=== PATIENT | male | born 1965 | race Caucasian/White ===

== ENCOUNTER 2025-04-26 18:53 | Inpatient (IN) | payer MEDICAID, OTHER ==
[~2025-04-26] VITALS: Ht 177.8 cm; Wt 74.8 kg
[2025-04-26 19:43] LABS: BASOPHILS % 0.6 % (0.0-2.0); EOSINOPHILS % 3.7 % (0.0-5.0); HEMATOCRIT. 40.7 % (42.0-52.0); HEMOGLOBIN. 13.8 g/dL (14.0-18.0); LYMPHOCYTES % 10.3 % (20.0-50.0); MEAN CORPUSCULAR HEMOGLOBIN 32.2 pg (28.0-32.0); MEAN CORPUSCULAR VOLUME 94.6 fL (80.0-94.0); MEAN PLATELET VOLUME 8.2 fl (7.4-10.4); MONOCYTES % 3.1 % (2.0-8.0); NEUTROPHILS % 82.3 % (40.0-76.0); PLATELET 217 x1000/uL (130-400); RED CELL DISTRIBUTION WIDTH 13.7 % (11.6-14.6); WHITE BLOOD COUNT 14.7 x1000/uL (4.5-11.0)
[2025-04-26 19:51] LABS: CHLORIDE 108 mEq/L (98-107); POTASSIUM 4.1 mEq/L (3.5-5.1); SODIUM 138 mEq/L (136-145)
[2025-04-26 19:52] LABS: CARBON DIOXIDE 25 mEq/L (21-32)
[2025-04-26 19:53] LABS: CALCIUM 8.8 mg/dL (8.7-10.4)
[2025-04-26 19:57] LABS: GLUCOSE 233 mg/dL (70-105); UREA NITROGEN BLOOD 16 mg/dL (9-23)
[2025-04-26 20:26] LABS: TROPONIN I HIGH SENSITIVITY < 4 ng/L (3.0-53)
[2025-04-26] MEDS: ONDANSETRON HCL 4MG/2ML INJ IV STA (21:03)
[2025-04-26] MEDS: MORPHINE SULFATE 4 MG/ML INJ (FOR IV/IM USE) IV STA (21:03)
[2025-04-26 22:03] LABS: PARTIAL THROMBOPLASTIN TIME 27.1 sec (23.4-31.0); PROTHROMBIN TIME 11.2 sec (9.6-11.0)
[2025-04-26 22:07] LABS: ALANINE AMINOTRANSFERASE 16 IU/L (10-49); ASPARTATE AMINOTRANSFERASE 17 IU/L (<34); BILIRUBIN DIRECT 0.1 mg/dL (<=3.0); BILIRUBIN TOTAL 0.5 mg/dL (0.1-1.0); PROTEIN TOTAL 7.3 g/dL (6.0-8.3)
[2025-04-26] MEDS: SODIUM CHLORIDE 0.9% 1,000 ML IV ONE (22:17)
[2025-04-26] MEDS: CEFTRIAXONE 1GM/50ML 50 ML IV ONE (23:13)
[2025-04-26] MEDS: DOXYCYCLINE 100MG/100ML 100 ML IV SCH (23:13)
[2025-04-27] MEDS: IOHEXOL-350 100 ML BOTTLE ONE
[2025-04-27] MEDS ORDERED: MORPHINE SULFATE 4 MG/ML INJ (FOR IV/IM USE) IV ONE (00:15)
[2025-04-27] MEDS: MORPHINE SULFATE 4 MG/ML INJ (FOR IV/IM USE) IV NR (02:35)
[2025-04-27] MEDS ORDERED: PRAZ1CAP5 PO (03:39)
[2025-04-27] MEDS ORDERED: RISP0.5T79 MT (03:39)
[2025-04-27 03:57] VITALS: BP 137/75; PULSE 87; RESP 18; TEMP 36.5
[2025-04-27 04:00] VITALS: BP 131/66; PULSE 69; RESP 19; TEMP 36.8; O2SAT 98
[2025-04-27] MEDS ORDERED: NALOXONE HCL 0.4MG/ML VIAL IV PRN (06:00)
[2025-04-27] MEDS ORDERED: DEXTROSE 50% WATER 50ML SYRINGE IV PRN (06:00)
[2025-04-27] MEDS: BLOOD SUGAR DIAGNOSTIC STRIP TEST SCH (06:42)
[2025-04-27 08:00] VITALS: BP 128/72; PULSE 65; RESP 18; TEMP 36.9; O2SAT 98
[2025-04-27] MEDS: INSULIN LISPRO 100 UNITS/ML SUBCUT SCH (08:39)
[2025-04-27] MEDS: INSULIN GLARGINE 100 UNITS/ML SUBCUT SCH (08:39)
[2025-04-27] MEDS: ASPIRIN 81MG TABLET PO SCH (08:43)
[2025-04-27] MEDS: METOPROLOL TARTRATE 50MG TABLET PO SCH (08:43)
[2025-04-27] MEDS: HYDROCODONE/ACETAMINOPHEN 5/325MG TABLET PO PRN (08:56)
[2025-04-27 12:00] VITALS: BP 134/78; PULSE 72; RESP 18; TEMP 36.5
[2025-04-27] MEDS ORDERED: ASCO500T20 PO (13:58)
[2025-04-27] MEDS ORDERED: MULT-1279 PO (13:58)
[2025-04-27] MEDS ORDERED: CYAN-50 PO (13:58)
[2025-04-27] MEDS ORDERED: FOLI0.4T6 PO (13:58)
[2025-04-27 16:16] LABS: HEMOGLOBIN. 14.6 g/dL (14.0-18.0); MEAN CORPUSCULAR HEMOGLOBIN 31.8 pg (28.0-32.0); MEAN CORPUSCULAR HGB CONC 33.9 g/dL (31.0-37.0); MEAN CORPUSCULAR VOLUME 93.8 fL (80.0-94.0); MEAN PLATELET VOLUME 8.1 fl (7.4-10.4); PLATELET 204 x1000/uL (130-400); RED BLOOD CELL COUNT 4.58 mill/uL (4.7-6.1); WHITE BLOOD COUNT 16.6 x1000/uL (4.5-11.0)
[2025-04-27 16:17] LABS: DIFFERENTIAL COMMENT 1
[2025-04-27 16:26] LABS: CHLORIDE 100 mEq/L (98-107); POTASSIUM 3.9 mEq/L (3.5-5.1); SODIUM 133 mEq/L (136-145)
[2025-04-27 16:27] LABS: CALCIUM 8.7 mg/dL (8.7-10.4); CARBON DIOXIDE 27 mEq/L (21-32)
[2025-04-27 16:31] LABS: PLATELET ESTIMATE NORMAL
[2025-04-27 16:32] LABS: CREATININE 0.8 mg/dL (0.6-1.3); GLUCOSE 189 mg/dL (70-105); TRIGLYCERIDE 97 mg/dL (0-150); UREA NITROGEN BLOOD 10 mg/dL (9-23)
[2025-04-27 16:33] LABS: LDL CHOLESTEROL 134 mg/dL (5-100)
[2025-04-27 16:34] LABS: CHOLESTEROL 189 mg/dL (<200); HDL CHOLESTEROL 51 mg/dL (>55)
[2025-04-27 16:37] LABS: THYROID STIMULATING HORMONE 0.37 uIU/mL (0.55-4.78)
[2025-04-27 18:20] VITALS: BP 140/76; PULSE 82; RESP 18; TEMP 36.9; O2SAT 98
[2025-04-27 20:00] VITALS: BP 119/73; PULSE 79; RESP 18; TEMP 36.8; O2SAT 98
[2025-04-27] MEDS: ATORVASTATIN CALCIUM 40MG TABLET PO SCH (20:57)
[2025-04-27] MEDS: PRAZOSIN HCL 1MG CAPSULE PO SCH (20:59)
[2025-04-28] VITALS: BP 93/42; PULSE 63; RESP 18; TEMP 37.1; O2SAT 93
[2025-04-28 04:00] VITALS: BP 102/62; PULSE 63; RESP 18; TEMP 36.6; O2SAT 93
[2025-04-28 06:43] LABS: HEMATOCRIT. 41.7 % (42.0-52.0); HEMOGLOBIN. 14.3 g/dL (14.0-18.0); MEAN CORPUSCULAR HEMOGLOBIN 32.1 pg (28.0-32.0); MEAN CORPUSCULAR HGB CONC 34.2 g/dL (31.0-37.0); MEAN CORPUSCULAR VOLUME 93.7 fL (80.0-94.0); MEAN PLATELET VOLUME 8.7 fl (7.4-10.4); PLATELET 171 x1000/uL (130-400); RED BLOOD CELL COUNT 4.45 mill/uL (4.7-6.1); RED CELL DISTRIBUTION WIDTH 13.9 % (11.6-14.6); WHITE BLOOD COUNT 21.8 x1000/uL (4.5-11.0)
[2025-04-28 06:44] LABS: CARBON DIOXIDE 26 mEq/L (21-32); CHLORIDE 97 mEq/L (98-107); POTASSIUM 3.7 mEq/L (3.5-5.1); SODIUM 131 mEq/L (136-145)
[2025-04-28 06:45] LABS: CALCIUM 8.7 mg/dL (8.7-10.4)
[2025-04-28 06:50] LABS: CREATININE 0.8 mg/dL (0.6-1.3); GLUCOSE 166 mg/dL (70-105)
[2025-04-28 06:51] LABS: UREA NITROGEN BLOOD 14 mg/dL (9-23)
[2025-04-28 06:53] LABS: DIFFERENTIAL COMMENT 1
[2025-04-28 08:00] VITALS: BP 108/70; PULSE 76; RESP 20; TEMP 36.9; O2SAT 93
[2025-04-28] MEDS ORDERED: FOLIC ACID 1MG TABLET PO SCH (09:00)
[2025-04-28] MEDS ORDERED: MULTIVITAMINS,THER W-MINERALS TABLET PO SCH (09:00)
[2025-04-28] MEDS: MULTIVITAMINS,THER W-MINERALS TABLET PO SCH (09:00)
[2025-04-28] MEDS: PANTOPRAZOLE SODIUM 40 MG/VIAL IV SCH (09:21)
[2025-04-28] MEDS: RISPERIDONE 0.5MG TABLET PO SCH (09:23)
[2025-04-28] MEDS: CYANOCOBALAMIN 1000MCG TABLET PO SCH (09:24)
[2025-04-28] MEDS: FOLIC ACID 1MG TABLET PO SCH (09:24)
[2025-04-28] MEDS: THIAMINE HCL 100MG TABLET PO SCH (09:24)
[2025-04-28] MEDS: ASCORBIC ACID 500 MG TABLET PO SCH (09:25)
[2025-04-28 12:00] VITALS: BP 112/64; PULSE 67; RESP 20; TEMP 36.4; O2SAT 99
[2025-04-28 13:14] LABS: PLATELET ESTIMATE NORMAL
[2025-04-28] MEDS: PIPERACILLIN/TAZO 3.375G/50ML IV SCH (13:48)
[2025-04-28] MEDS: VANCOMYCIN 1.5GM/250ML IV NR (14:00)
[2025-04-28] MEDS ORDERED: PIPERACILLIN/TAZO 3.375G/100ML 100 ML IV SCH (14:00)
[2025-04-28 16:00] VITALS: BP 118/65; PULSE 68; RESP 20; TEMP 36.6; O2SAT 98
[2025-04-28 20:00] VITALS: BP 116/55; PULSE 67; RESP 18; TEMP 36.7; O2SAT 100
[2025-04-29] VITALS: BP 95/59; PULSE 68; RESP 18; TEMP 36.4; O2SAT 98
[2025-04-29] MEDS: VANCOMYCIN 1.25GM/250ML IV SCH (01:11)
[2025-04-29 04:00] VITALS: BP 115/61; PULSE 70; RESP 16; TEMP 36.7; O2SAT 100
[2025-04-29 06:12] LABS: CALCIUM 8.7 mg/dL (8.7-10.4); CARBON DIOXIDE 26 mEq/L (21-32); CHLORIDE 97 mEq/L (98-107); POTASSIUM 3.9 mEq/L (3.5-5.1); SODIUM 132 mEq/L (136-145)
[2025-04-29 06:18] LABS: CREATININE 0.8 mg/dL (0.6-1.3); GLUCOSE 224 mg/dL (70-105); UREA NITROGEN BLOOD 15 mg/dL (9-23)
[2025-04-29 06:26] LABS: HEMATOCRIT. 39.9 % (42.0-52.0); HEMOGLOBIN. 13.7 g/dL (14.0-18.0); MEAN CORPUSCULAR HEMOGLOBIN 31.9 pg (28.0-32.0); MEAN CORPUSCULAR HGB CONC 34.4 g/dL (31.0-37.0); MEAN CORPUSCULAR VOLUME 92.8 fL (80.0-94.0); MEAN PLATELET VOLUME 9.1 fl (7.4-10.4); PLATELET 164 x1000/uL (130-400); RED CELL DISTRIBUTION WIDTH 13.8 % (11.6-14.6)
[2025-04-29 07:00] LABS: DIFFERENTIAL COMMENT 1
[2025-04-29 08:00] VITALS: BP 111/64; PULSE 70; RESP 18; TEMP 36.8; O2SAT 98
[2025-04-29 08:34] LABS: *AMPHETAMINES SCREEN URINE NEGATIVE (NEGATIVE); *BARBITURATES SCREEN URINE NEGATIVE (NEGATIVE); *BENZODIAZEPINES SCREEN URINE NEGATIVE (NEGATIVE); *COCAINE SCREEN URINE PRESUMPTIVE POSITIVE (NEGATIVE); CANNABINOID URINE SCREEN NEGATIVE (NEGATIVE); ECSTASY MDMA SCREEN URINE NEGATIVE (NEGATIVE); METHADONE URINE SCREEN NEGATIVE (NEGATIVE); OPIATES URINE SCREEN PRESUMPTIVE POSITIVE (NEGATIVE); PHENCYCLIDINE URINE SCREEN NEGATIVE (NEGATIVE)
[2025-04-29] MEDS ORDERED: GUAIFENESIN/CODEINE 200-20MG/10ML UDC PO PRN (11:30)
[2025-04-29 12:00] VITALS: BP 109/65; PULSE 67; RESP 18; TEMP 36.8; O2SAT 96
[2025-04-29 16:00] VITALS: BP 105/68; PULSE 69; RESP 18; TEMP 36.7; O2SAT 97
[2025-04-29 17:16] LABS: PLATELET ESTIMATE NORMAL
[2025-04-29] MEDS: AZITHROMYCIN 500MG/250ML 250 ML IV SCH (18:47)
[2025-04-29 20:00] VITALS: BP 118/61; PULSE 78; RESP 19; TEMP 37.7; O2SAT 96
[2025-04-30] VITALS: BP 120/50; PULSE 91; RESP 18; TEMP 38.3; O2SAT 98
[2025-04-30 00:20] LABS: CARBON DIOXIDE 27 mEq/L (21-32); CHLORIDE 99 mEq/L (98-107); POTASSIUM 3.9 mEq/L (3.5-5.1); SODIUM 134 mEq/L (136-145)
[2025-04-30 00:21] LABS: CALCIUM 8.7 mg/dL (8.7-10.4)
[2025-04-30 00:25] LABS: CREATININE 0.8 mg/dL (0.6-1.3); GLUCOSE 150 mg/dL (70-105)
[2025-04-30 00:26] LABS: UREA NITROGEN BLOOD 11 mg/dL (9-23)
[2025-04-30 00:27] LABS: ALANINE AMINOTRANSFERASE 30 IU/L (10-49); ASPARTATE AMINOTRANSFERASE 34 IU/L (<34)
[2025-04-30 00:28] LABS: ALBUMIN 3.7 g/dL (3.2-4.8); BILIRUBIN TOTAL 0.7 mg/dL (0.1-1.0); PROTEIN TOTAL 6.6 g/dL (6.0-8.3)
[2025-04-30 04:00] VITALS: BP 141/69; PULSE 19; RESP 19; TEMP 38.3; O2SAT 100
[2025-04-30] MEDS: ACETAMINOPHEN 325MG TABLET PO PRN (05:55)
[2025-04-30 08:00] VITALS: BP 118/70; PULSE 75; RESP 17; TEMP 36.7; O2SAT 98
[2025-04-30] MEDS: FAMOTIDINE 20MG/2ML VIAL IV SCH (10:27)
[2025-04-30] MEDS: DEXT 5%/0.45% NACL KCL 20MEQ/L 1,000 ML IV SCH (10:36)
[2025-04-30 11:35] LABS: INR 1.3; PROTHROMBIN TIME 13.7 sec (9.6-11.0)
[2025-04-30 12:00] VITALS: BP 119/72; PULSE 76; RESP 16; TEMP 36.4; O2SAT 98
[2025-04-30] MEDS ORDERED: LIDOCAINE HCL 1% 20ML VIAL INFIL SCH (15:00)
[2025-04-30] MEDS: KCL 20MEQ/100ML PREMIX 100 ML IV NR (15:26)
[2025-04-30 16:00] VITALS: BP_SYST 118; BP_SYST 120; BP_DIAS 71; BP_DIAS 75; PULSE 75; RESP 17; RESP 18; TEMP 35.8; TEMP 36.4; O2SAT 98; O2SAT 99
[2025-04-30] MEDS: AZITHROMYCIN 500MG/250ML 250 ML IV SCH (18:51)
[2025-04-30 20:00] VITALS: BP 122/72; PULSE 68; RESP 21; TEMP 36.2; O2SAT 95
[2025-04-30] MEDS ORDERED: CHLORHEXIDINE GLUCONATE 4% EXTERNAL USE TOP SCH (23:15)
[2025-05-01] VITALS (40 sets, daily range): BP systolic 88–123; BP diastolic 46–75; PULSE 57–75; RESP 14–29; TEMP 36.3–36.6; O2SAT 95–100
[2025-05-01] MEDS: IPRATROPIUM/ALBUTEROL 0.5-3(2.5)MG/3ML NEB HHN SCH (00:23)
[2025-05-01] MEDS ORDERED: CHLORHEXIDINE GLUCONATE 4% EXTERNAL USE TOP SCH (05:00)
[2025-05-01] MEDS ORDERED: SKIN ADHESIVE 0.7 GM EA TOP ONE (07:06)
[2025-05-01] MEDS ORDERED: POLYMYXIN B SULFATE 500000 UNITS/VIAL ONE (07:06)
[2025-05-01] MEDS ORDERED: PHENYLEPHRINE 50MG/250ML PMX 250 ML IV ONE (07:06)
[2025-05-01] MEDS ORDERED: LIDOCAINE HCL/EPINEPHRINE 1%-EPI 1:100,000 20ML VIAL ONE (07:06)
[2025-05-01] MEDS ORDERED: BUPIVACAINE HCL/PF 0.5% (5MG/ML) 10ML ONE ×2 (07:07→13:10)
[2025-05-01] MEDS ORDERED: ACETAMINOPHEN 1000MG/100ML 100 ML IV ONE (07:07)
[2025-05-01] MEDS ORDERED: SUGAMMADEX SODIUM 200MG/2ML VIAL IV ONE (07:07)
[2025-05-01] MEDS ORDERED: TETRACAINE/BENZOCAINE/BUTAMBEN 20 GM SPRAY MM ONE (07:49)
[2025-05-01] MEDS ORDERED: LIDOCAINE HCL 1% 20ML VIAL ONE (08:15)
[2025-05-01] MEDS ORDERED: ROCURONIUM BROMIDE 10MG/ML VIAL 5ML IV ONE ×3 (08:15→12:15)
[2025-05-01] MEDS ORDERED: PROPOFOL 200MG/20ML VIAL IV ONE (08:15)
[2025-05-01 09:31] LABS: BASOPHILS % 0.5 % (0.0-2.0); EOSINOPHILS % 2.6 % (0.0-5.0); HEMATOCRIT. 38.5 % (42.0-52.0); HEMOGLOBIN. 13.2 g/dL (14.0-18.0); LYMPHOCYTES % 12.1 % (20.0-50.0); MEAN CORPUSCULAR HEMOGLOBIN 32.1 pg (28.0-32.0); MEAN CORPUSCULAR HGB CONC 34.3 g/dL (31.0-37.0); MEAN CORPUSCULAR VOLUME 93.6 fL (80.0-94.0); MEAN PLATELET VOLUME 8.1 fl (7.4-10.4); NEUTROPHILS % 75.8 % (40.0-76.0); PLATELET 206 x1000/uL (130-400); RED BLOOD CELL COUNT 4.11 mill/uL (4.7-6.1); RED CELL DISTRIBUTION WIDTH 13.5 % (11.6-14.6); WHITE BLOOD COUNT 11.1 x1000/uL (4.5-11.0)
[2025-05-01 09:56] LABS: CHLORIDE 103 mEq/L (98-107); SODIUM 136 mEq/L (136-145)
[2025-05-01 09:57] LABS: CALCIUM 8.8 mg/dL (8.7-10.4); CARBON DIOXIDE 28 mEq/L (21-32)
[2025-05-01 10:02] LABS: CREATININE 0.9 mg/dL (0.6-1.3); GLUCOSE 134 mg/dL (70-105); UREA NITROGEN BLOOD 11 mg/dL (9-23)
[2025-05-01 10:03] LABS: LACTATE DEHYDROGENASE 158 IU/L (120-246)
[2025-05-01 10:04] LABS: ALBUMIN 3.7 g/dL (3.2-4.8)
[2025-05-01] MEDS ORDERED: FENTANYL CITRATE/PF 50MCG/ML 5ML VIAL ONE (10:05)
[2025-05-01] MEDS ORDERED: MIDAZOLAM HCL 2 MG/2 ML VIAL ONE (10:05)
[2025-05-01] MEDS ORDERED: EPHEDRINE SULFATE 50MG/ML VIAL ONE (11:38)
[2025-05-01] MEDS ORDERED: ONDANSETRON HCL 4MG/2ML INJ ONE (12:17)
[2025-05-01 12:41] LABS: AMYLASE BODY FLUID < 20 IU/L; PROTEIN BODY FLUID 4.8 gm/dL
[2025-05-01 12:54] LABS: ALBUMIN 3.5 g/dL (3.2-4.8)
[2025-05-01 14:07] LABS: BODY FLUID MONOCYTES 5 %
[2025-05-01 14:15] LABS: BODY FLUID RBC 1695 /cu mm (0-2000); BODY FLUID WBC 65 /cu mm (0-200)
[2025-05-01] MEDS ORDERED: ACETAMINOPHEN 325MG TABLET PO PRN (14:45)
[2025-05-01] MEDS ORDERED: ACETAMINOPHEN 650MG SUPP PR PRN (14:45)
[2025-05-01] MEDS ORDERED: CALCIUM CHLORIDE 3,000 MG in DEXT 5% WATER 250 ML IV PRN (15:00)
[2025-05-01] MEDS ORDERED: CALCIUM CHLORIDE 5,000 MG in DEXT 5% WATER 500 ML IV PRN (15:00)
[2025-05-01] MEDS: ALBUMIN HUMAN 12.5G/250ML (5%) IV SCH (15:52)
[2025-05-01 17:26] LABS: BG BASE EXCESS -0.5 mmol/L (-2.0-3.0); BG CARBOXYHEMOGLOBIN 1.2 % (0.5-1.5); BG DEOXYHEMOGLOBIN 1.5 % (0.0-5.0); BG FRACTION INSPIRED OXYGEN 40; BG HCO3 ACT 23.9 mmol/L (21.0-28.0); BG OXYGEN SATURATION 98.5 % (94.0-98.0); BG OXYHEMOGLOBIN 97.3 % (94.0-98.0); BG PCO2 38.3 mmHg (35.0-48.0); BG PH 7.413 (7.350-7.450); BG PO2 117.5 mmHg (83.0-108.0); BG SAMPLE SITE ALINE; BG TOTAL HEMOGLOBIN 13.2 g/dL (13.5-17.5); BG VENT MODE NASAL CANNULA
[2025-05-01 17:43] LABS: PROTEIN BODY FLUID 4.8 gm/dL
[2025-05-01 18:17] LABS: BODY FLUID MONOCYTES 19 %; BODY FLUID RBC 4625 /cu mm (0-2000); BODY FLUID WBC 322 /cu mm (0-200)
[2025-05-01] MEDS ORDERED: ALBUMIN HUMAN 12.5G/250ML (5%) IV SCH (18:30)
[2025-05-01] MEDS: DOCUSATE SODIUM 100MG CAPSULE PO SCH (21:29)
[2025-05-01 21:49] LABS: HEMATOCRIT. 38.3 % (42.0-52.0); HEMOGLOBIN. 12.9 g/dL (14.0-18.0); MEAN CORPUSCULAR HEMOGLOBIN 31.5 pg (28.0-32.0); MEAN CORPUSCULAR HGB CONC 33.6 g/dL (31.0-37.0); MEAN PLATELET VOLUME 8.9 fl (7.4-10.4); PLATELET 203 x1000/uL (130-400); RED BLOOD CELL COUNT 4.08 mill/uL (4.7-6.1); RED CELL DISTRIBUTION WIDTH 13.9 % (11.6-14.6)
[2025-05-01 21:51] LABS: DIFFERENTIAL COMMENT 1
[2025-05-01 21:59] LABS: INR 1.1; PARTIAL THROMBOPLASTIN TIME 27.8 sec (23.4-31.0); PROTHROMBIN TIME 11.4 sec (9.6-11.0)
[2025-05-01] MEDS: OXYCODONE HCL/ACETAMINOPHEN 5/325MG TABLET PO PRN (22:04)
[2025-05-01 22:12] LABS: PLATELET ESTIMATE NORMAL
[2025-05-01 22:17] LABS: CHLORIDE 100 mEq/L (98-107); POTASSIUM 4.4 mEq/L (3.5-5.1); SODIUM 134 mEq/L (136-145)
[2025-05-01 22:18] LABS: CALCIUM 8.4 mg/dL (8.7-10.4); CARBON DIOXIDE 25 mEq/L (21-32)
[2025-05-01 22:23] LABS: CREATININE 0.8 mg/dL (0.6-1.3); GLUCOSE 263 mg/dL (70-105); UREA NITROGEN BLOOD 12 mg/dL (9-23)
[2025-05-01 22:25] LABS: PHOSPHORUS 3.5 mg/dL (2.5-4.9)
[2025-05-02] VITALS (49 sets, daily range): BP systolic 105–155; BP diastolic 49–129; PULSE 60–88; RESP 13–32; TEMP 36.5–36.8; O2SAT 94–100
[2025-05-02] MEDS: TRAZODONE HCL 50MG TABLET PO PRN (02:02)
[2025-05-02] MEDS: MORPHINE SULFATE 2 MG/ML INJ (NOT FOR IM USE) IV PRN (03:00)
[2025-05-02 05:43] LABS: BASOPHILS % 0.3 % (0.0-2.0); EOSINOPHILS % 1.8 % (0.0-5.0); HEMATOCRIT. 36.9 % (42.0-52.0); HEMOGLOBIN. 12.5 g/dL (14.0-18.0); LYMPHOCYTES % 7.2 % (20.0-50.0); MEAN CORPUSCULAR HGB CONC 33.9 g/dL (31.0-37.0); MEAN CORPUSCULAR VOLUME 94.4 fL (80.0-94.0); MEAN PLATELET VOLUME 8.8 fl (7.4-10.4); NEUTROPHILS % 84.7 % (40.0-76.0); PLATELET 211 x1000/uL (130-400); RED CELL DISTRIBUTION WIDTH 13.8 % (11.6-14.6); WHITE BLOOD COUNT 12.1 x1000/uL (4.5-11.0)
[2025-05-02 05:49] LABS: CHLORIDE 98 mEq/L (98-107); POTASSIUM 4.2 mEq/L (3.5-5.1); SODIUM 133 mEq/L (136-145)
[2025-05-02 05:50] LABS: CALCIUM 8.5 mg/dL (8.7-10.4); CARBON DIOXIDE 29 mEq/L (21-32)
[2025-05-02 05:55] LABS: GLUCOSE 333 mg/dL (70-105); UREA NITROGEN BLOOD 8 mg/dL (9-23)
[2025-05-02 05:58] LABS: PHOSPHORUS 2.7 mg/dL (2.5-4.9)
[2025-05-02] MEDS: ONDANSETRON HCL 4MG/2ML INJ IV PRN (06:41)
[2025-05-02] MEDS: METOPROLOL TARTRATE 25MG TABLET PO NR (09:56)
[2025-05-02] MEDS: LIDOCAINE HCL 1% 10 MG/ML 10ML VIAL ONE (10:38)
[2025-05-02] MEDS: CALCIUM GLUCONATE 1GM PREMIX 50 ML IV SCH (13:07)
[2025-05-02] MEDS: ENOXAPARIN 40MG/0.4ML SYR SUBCUT SCH (17:06)
[2025-05-02] MEDS: GUAIFENESIN 600MG ER TABLET PO SCH (20:47)
[2025-05-02] MEDS: DOCUSATE SODIUM 100MG CAPSULE PO SCH (20:47)
[2025-05-02] MEDS: METOPROLOL TARTRATE 25MG TABLET PO SCH (20:49)
[2025-05-02] MEDS: INSULIN GLARGINE 100 UNITS/ML SUBCUT SCH (23:14)
[2025-05-03] VITALS (32 sets, daily range): BP systolic 101–251; BP diastolic 46–91; PULSE 57–98; RESP 12–26; TEMP 36.7–36.9; O2SAT 92–100
[2025-05-03 07:07] LABS: BASOPHILS % 0.5 % (0.0-2.0); EOSINOPHILS % 7.4 % (0.0-5.0); HEMATOCRIT. 38.3 % (42.0-52.0); HEMOGLOBIN. 13.2 g/dL (14.0-18.0); LYMPHOCYTES % 14.9 % (20.0-50.0); MEAN CORPUSCULAR HEMOGLOBIN 32.3 pg (28.0-32.0); MEAN CORPUSCULAR HGB CONC 34.3 g/dL (31.0-37.0); MEAN CORPUSCULAR VOLUME 93.9 fL (80.0-94.0); MEAN PLATELET VOLUME 8.4 fl (7.4-10.4); MONOCYTES % 6.6 % (2.0-8.0); NEUTROPHILS % 70.6 % (40.0-76.0); PLATELET 240 x1000/uL (130-400); RED BLOOD CELL COUNT 4.08 mill/uL (4.7-6.1); RED CELL DISTRIBUTION WIDTH 13.5 % (11.6-14.6); WHITE BLOOD COUNT 9.7 x1000/uL (4.5-11.0)
[2025-05-03 07:08] LABS: CARBON DIOXIDE 32 mEq/L (21-32); CHLORIDE 98 mEq/L (98-107); POTASSIUM 4.9 mEq/L (3.5-5.1); SODIUM 137 mEq/L (136-145)
[2025-05-03 07:09] LABS: CALCIUM 9.1 mg/dL (8.7-10.4)
[2025-05-03 07:13] LABS: CREATININE 0.8 mg/dL (0.6-1.3)
[2025-05-03 07:14] LABS: UREA NITROGEN BLOOD 6 mg/dL (9-23)
[2025-05-03 07:16] LABS: PHOSPHORUS 3.1 mg/dL (2.5-4.9)
[2025-05-03] MEDS: LIDOCAINE HCL 1% 10 MG/ML 10ML VIAL ONE (07:24)
[2025-05-03 08:41] LABS: GLUCOSE 175 mg/dL (70-105)
[2025-05-03] MEDS: METOPROLOL TARTRATE 50MG TABLET PO SCH (09:55)
[2025-05-03] MEDS ORDERED: METOPROLOL TARTRATE 50MG TABLET PO SCH (21:00)
[2025-05-04] VITALS (68 sets, daily range): BP systolic 102–159; BP diastolic 45–121; PULSE 53–87; RESP 10–25; TEMP 36.4–36.6; O2SAT 93–100
[2025-05-04] MEDS: OXYCODONE HCL/ACETAMINOPHEN 5/325MG TABLET PO PRN (04:20)
[2025-05-04 05:38] LABS: BASOPHILS % 0.8 % (0.0-2.0); EOSINOPHILS % 13.1 % (0.0-5.0); HEMATOCRIT. 38.5 % (42.0-52.0); HEMOGLOBIN. 12.8 g/dL (14.0-18.0); LYMPHOCYTES % 15.5 % (20.0-50.0); MEAN CORPUSCULAR HEMOGLOBIN 31.4 pg (28.0-32.0); MEAN CORPUSCULAR HGB CONC 33.3 g/dL (31.0-37.0); MEAN CORPUSCULAR VOLUME 94.4 fL (80.0-94.0); MEAN PLATELET VOLUME 8.3 fl (7.4-10.4); MONOCYTES % 7.5 % (2.0-8.0); NEUTROPHILS % 63.1 % (40.0-76.0); PLATELET 246 x1000/uL (130-400); RED BLOOD CELL COUNT 4.08 mill/uL (4.7-6.1); RED CELL DISTRIBUTION WIDTH 13.8 % (11.6-14.6); WHITE BLOOD COUNT 8.3 x1000/uL (4.5-11.0)
[2025-05-04 05:46] LABS: CHLORIDE 96 mEq/L (98-107); POTASSIUM 3.9 mEq/L (3.5-5.1); SODIUM 134 mEq/L (136-145)
[2025-05-04 05:47] LABS: CALCIUM 9.6 mg/dL (8.7-10.4); CARBON DIOXIDE 35 mEq/L (21-32)
[2025-05-04 05:52] LABS: CREATININE 0.9 mg/dL (0.6-1.3); GLUCOSE 228 mg/dL (70-105); UREA NITROGEN BLOOD 6 mg/dL (9-23)
[2025-05-04] MEDS: POTASSIUM CHLORIDE 20MEQ TABLET SR PO PRN (10:20)
[2025-05-04] MEDS: METOPROLOL TARTRATE 25MG TABLET PO SCH (10:22)
[2025-05-04] MEDS: INSULIN GLARGINE 100 UNITS/ML SUBCUT SCH (10:23)
[2025-05-04 13:05] LABS: BASOPHILS % 0.6 % (0.0-2.0); EOSINOPHILS % 13.3 % (0.0-5.0); HEMATOCRIT. 37.1 % (42.0-52.0); HEMOGLOBIN. 12.9 g/dL (14.0-18.0); LYMPHOCYTES % 17.2 % (20.0-50.0); MEAN CORPUSCULAR HEMOGLOBIN 32.9 pg (28.0-32.0); MEAN CORPUSCULAR HGB CONC 34.8 g/dL (31.0-37.0); MEAN CORPUSCULAR VOLUME 94.5 fL (80.0-94.0); MEAN PLATELET VOLUME 8.1 fl (7.4-10.4); MONOCYTES % 7.6 % (2.0-8.0); NEUTROPHILS % 61.3 % (40.0-76.0); PLATELET 255 x1000/uL (130-400); RED BLOOD CELL COUNT 3.92 mill/uL (4.7-6.1); RED CELL DISTRIBUTION WIDTH 13.3 % (11.6-14.6); WHITE BLOOD COUNT 8.7 x1000/uL (4.5-11.0)
[2025-05-04 13:18] LABS: CHLORIDE 94 mEq/L (98-107); POTASSIUM 4.3 mEq/L (3.5-5.1); SODIUM 132 mEq/L (136-145)
[2025-05-04 13:19] LABS: CALCIUM 9.2 mg/dL (8.7-10.4); CARBON DIOXIDE 32 mEq/L (21-32)
[2025-05-04 13:24] LABS: CREATININE 0.9 mg/dL (0.6-1.3); GLUCOSE 227 mg/dL (70-105); UREA NITROGEN BLOOD 6 mg/dL (9-23)
[2025-05-04 13:27] LABS: PHOSPHORUS 3.8 mg/dL (2.5-4.9)
[2025-05-04] MEDS: MICAFUNGIN 100 MG in SODIUM CHLORIDE 0.9% 100 ML IV SCH (13:50)
[2025-05-05] VITALS (27 sets, daily range): BP systolic 103–190; BP diastolic 56–158; PULSE 60–93; RESP 12–23; TEMP 36.3–37; O2SAT 90–99
[2025-05-05 06:20] LABS: BASOPHILS % 0.5 % (0.0-2.0); EOSINOPHILS % 10.7 % (0.0-5.0); HEMATOCRIT. 40.7 % (42.0-52.0); HEMOGLOBIN. 13.9 g/dL (14.0-18.0); LYMPHOCYTES % 16.4 % (20.0-50.0); MEAN CORPUSCULAR HEMOGLOBIN 32.1 pg (28.0-32.0); MEAN CORPUSCULAR HGB CONC 34.1 g/dL (31.0-37.0); MEAN CORPUSCULAR VOLUME 94.1 fL (80.0-94.0); MONOCYTES % 7.8 % (2.0-8.0); NEUTROPHILS % 64.6 % (40.0-76.0); PLATELET 281 x1000/uL (130-400); RED BLOOD CELL COUNT 4.32 mill/uL (4.7-6.1); RED CELL DISTRIBUTION WIDTH 13.6 % (11.6-14.6); WHITE BLOOD COUNT 9.4 x1000/uL (4.5-11.0)
[2025-05-05 06:24] LABS: CALCIUM 9.4 mg/dL (8.7-10.4); CARBON DIOXIDE 32 mEq/L (21-32); CHLORIDE 95 mEq/L (98-107); POTASSIUM 4.3 mEq/L (3.5-5.1); SODIUM 135 mEq/L (136-145)
[2025-05-05 06:29] LABS: CREATININE 0.9 mg/dL (0.6-1.3); GLUCOSE 177 mg/dL (70-105); UREA NITROGEN BLOOD 9 mg/dL (9-23)
[2025-05-05] MEDS: METOPROLOL TARTRATE 25MG TABLET PO SCH (22:00)
[2025-05-06] VITALS (36 sets, daily range): BP systolic 98–189; BP diastolic 60–111; PULSE 57–89; RESP 13–25; TEMP 36.4–36.8; O2SAT 88–100
[2025-05-06 05:09] LABS: HEMATOCRIT. 43.3 % (42.0-52.0); HEMOGLOBIN. 14.7 g/dL (14.0-18.0); LYMPHOCYTES % 18.3 % (20.0-50.0); MEAN CORPUSCULAR HEMOGLOBIN 31.7 pg (28.0-32.0); MEAN CORPUSCULAR HGB CONC 33.9 g/dL (31.0-37.0); MEAN CORPUSCULAR VOLUME 93.6 fL (80.0-94.0); MEAN PLATELET VOLUME 7.7 fl (7.4-10.4); MONOCYTES % 7.8 % (2.0-8.0); NEUTROPHILS % 62.9 % (40.0-76.0); PLATELET 301 x1000/uL (130-400); RED BLOOD CELL COUNT 4.63 mill/uL (4.7-6.1); RED CELL DISTRIBUTION WIDTH 13.8 % (11.6-14.6); WHITE BLOOD COUNT 10.3 x1000/uL (4.5-11.0)
[2025-05-06 05:25] LABS: CHLORIDE 95 mEq/L (98-107); POTASSIUM 4.9 mEq/L (3.5-5.1); SODIUM 132 mEq/L (136-145)
[2025-05-06 05:26] LABS: CARBON DIOXIDE 31 mEq/L (21-32)
[2025-05-06 05:27] LABS: CALCIUM 10.3 mg/dL (8.7-10.4)
[2025-05-06 05:31] LABS: GLUCOSE 244 mg/dL (70-105); UREA NITROGEN BLOOD 14 mg/dL (9-23)
[2025-05-07] VITALS (26 sets, daily range): BP systolic 70–149; BP diastolic 35–77; PULSE 53–81; RESP 14–21; TEMP 36.5–37.2; O2SAT 94–99
[2025-05-08] VITALS: BP 122/69; PULSE 60; RESP 18; TEMP 36.5; O2SAT 97
[2025-05-08 04:00] VITALS: BP 110/61; PULSE 65; RESP 18; TEMP 36.5; O2SAT 95
[2025-05-08 06:21] LABS: BASOPHILS % 1.3 % (0.0-2.0); EOSINOPHILS % 9.3 % (0.0-5.0); HEMATOCRIT. 39.5 % (42.0-52.0); HEMOGLOBIN. 13.6 g/dL (14.0-18.0); LYMPHOCYTES % 22.3 % (20.0-50.0); MEAN CORPUSCULAR HEMOGLOBIN 31.9 pg (28.0-32.0); MEAN CORPUSCULAR HGB CONC 34.4 g/dL (31.0-37.0); MEAN CORPUSCULAR VOLUME 92.6 fL (80.0-94.0); MEAN PLATELET VOLUME 7.8 fl (7.4-10.4); MONOCYTES % 7.9 % (2.0-8.0); NEUTROPHILS % 59.2 % (40.0-76.0); PLATELET 294 x1000/uL (130-400); RED BLOOD CELL COUNT 4.26 mill/uL (4.7-6.1); RED CELL DISTRIBUTION WIDTH 13.4 % (11.6-14.6)
[2025-05-08 07:16] LABS: CHLORIDE 97 mEq/L (98-107); POTASSIUM 4.4 mEq/L (3.5-5.1); SODIUM 135 mEq/L (136-145)
[2025-05-08 07:17] LABS: CALCIUM 9.4 mg/dL (8.7-10.4); CARBON DIOXIDE 31 mEq/L (21-32)
[2025-05-08 07:22] LABS: GLUCOSE 148 mg/dL (70-105); UREA NITROGEN BLOOD 14 mg/dL (9-23)
[2025-05-08 08:00] VITALS: BP 135/73; PULSE 57; RESP 18; TEMP 36.5; O2SAT 97
[2025-05-08 16:00] VITALS: BP 108/59; PULSE 62; RESP 18; TEMP 36.7; O2SAT 92
[2025-05-08 20:00] VITALS: BP 136/70; PULSE 74; RESP 20; TEMP 36.4; O2SAT 97
[2025-05-09 04:00] VITALS: BP 110/62; PULSE 60; RESP 20; TEMP 36.3; O2SAT 99
[2025-05-09 08:00] VITALS: BP 122/66; PULSE 61; RESP 18; TEMP 36.7; O2SAT 100
[2025-05-09 12:00] VITALS: BP 102/60; PULSE 59; RESP 18; TEMP 36.6; O2SAT 99
[2025-05-09 16:00] VITALS: BP 114/71; PULSE 78; RESP 18; TEMP 36.9; O2SAT 99
[2025-05-09 20:00] VITALS: BP 131/68; PULSE 61; RESP 17; TEMP 36.4; O2SAT 97
[2025-05-09] MEDS: INSULIN GLARGINE 100 UNITS/ML SUBCUT SCH (21:31)
[2025-05-10] VITALS: BP 129/56; PULSE 59; RESP 18; TEMP 36.4; O2SAT 18
[2025-05-10 04:00] VITALS: BP_SYST 109; BP_SYST 129; BP_DIAS 60; BP_DIAS 71; PULSE 59; PULSE 95; RESP 18; RESP 19; TEMP 36.1; TEMP 36.4; O2SAT 98; O2SAT 99
[2025-05-10 08:00] VITALS: BP 120/64; PULSE 61; RESP 18; TEMP 36.4
[2025-05-10 11:16] VITALS: BP 120/64; PULSE 61; TEMP 97.6; O2SAT 100
[2025-05-10 12:00] VITALS: BP 109/58; PULSE 56; RESP 18; TEMP 36.4
== END 2025-05-10 15:48 | disposition home health service (06) | DRG 720 ==
LOC: ER 18:53 → 6WST 04-27 00:37 → EDBEDREQ 04-27 00:42 → EDBEDREQTM 04-27 00:42 → ENRESERV 04-27 00:59 → 6WST 04-29 18:33 → MICUNO 05-01 14:32 → 5WST 05-07 17:50
PROVIDERS: ADMIT Internal Medicine; ATTEND Internal Medicine
PROC: 0W9B30Z Drainage of Left Pleural Cavity with Drainage Device, Percutaneous Approach (ICD-10-PCS; principal; 2025-05-01)
PROC: 0BNJ8ZZ Release Left Lower Lung Lobe, Via Natural or Artificial Opening Endoscopic (ICD-10-PCS; 2025-05-01)
PROC: 3E0T3BZ Introduction of Anesthetic Agent into Peripheral Nerves and Plexi, Percutaneous Approach (ICD-10-PCS; 2025-05-01)
PROC: 0B9J8ZX Drainage of Left Lower Lung Lobe, Via Natural or Artificial Opening Endoscopic, Diagnostic (ICD-10-PCS; 2025-05-01)
PROC: 02HV33Z Insertion of Infusion Device into Superior Vena Cava, Percutaneous Approach (ICD-10-PCS; 2025-05-03)
PROC: B548ZZA Ultrasonography of Superior Vena Cava, Guidance (ICD-10-PCS; 2025-05-03)
DX: A41.9 Sepsis, unspecified organism (principal); J96.01 Acute respiratory failure with hypoxia; J86.9 Pyothorax without fistula; J18.9 Pneumonia, unspecified organism; J90 Pleural effusion, not elsewhere classified; E87.1 Hypo-osmolality and hyponatremia; F17.210 Nicotine dependence, cigarettes, uncomplicated; J98.11 Atelectasis; Y90.9 Presence of alcohol in blood, level not specified; F10.10 Alcohol abuse, uncomplicated; E11.65 Type 2 diabetes mellitus with hyperglycemia; Z82.49 Family history of ischemic heart disease and other diseases of the circulatory system; F14.90 Cocaine use, unspecified, uncomplicated
CPT/HCPCS: 36415; 36573; 36600; 71045; 71275; 74174; 76604; 80048; 80053; 80061; 80076; 80202; 80305; 82040; 82150; 82375; 82805; 82962; 83036; 83605; 83615; 83735; 83986; 84100; 84145; 84443; 84484; 85025; 85379; 86850; 86900; 86920; 87070; 87075; 87102; 87106; 87116; 87149; 87153; 87556; 88108; 88305; 88312; 89060; 93005; 93306; 94070; 94640; 94664; 94760; 97162; 97166; 97535; 98960; 99285; A4606; C1725; C1887; J0456; J0610; J0665; J0696; J1308; J1650; J1815; J2003; J2004; J2248; J2250; J2270; J2371; J2405; J2470; J2543; J2704; J3010; J3370; J3480; J3490; J7030; J7050; P9041; Q9967; A5200; J0131